=== PATIENT | female | born 1960 | race Caucasian/White ===

== ENCOUNTER 2024-01-07 16:27 | Emergency (ER) | payer MEDICARE, OTHER, SELFPAY ==
[2024-01-07 16:27] VITALS: BMI 24.6
[2024-01-07 16:36] VITALS: BP 137/80
[2024-01-07 17:03] LABS: % Basophils 0.7 % (0-2); % Eosinophils 0.8 % (0-6); % Immature Granulocytes 0.2 % (0-0.5); % Lymphocytes 15.5 % (20.5-51.1); % Monocytes 6.3 % (1.7-9.3); % Neutrophils 76.5 % (42.2-75.2); Absolute Basophils 0.1 10^3/uL (0-0.2); Absolute Eosinophils 0.1 10^3/uL (0-0.7); Absolute Monocytes 0.8 10^3/uL (0.1-0.6); Hematocrit 31.4 % (37.0-47.0); Hemoglobin 9.6 g/dL (12.0-16.0); Mean Corp Hgb Conc. 30.6 g/dL (33.0-37.0); Mean Corpuscular Hgb 24.2 pg (27.0-31.0); Mean Corpuscular Volume 79.3 fL (81.0-99.0); Mean Platelet Volume 10.2 fL (7.4-10.4); Nucleated Red Blood Cells % 0 %; Platelet Count 274 10^3/uL (130-400); Red Blood Cell Count 3.96 10^6/uL (4.20-5.40); Red Cell Dist. Width 16.7 % (11.5-14.5)
[2024-01-07 17:22] LABS: ALT (SGPT) 12 U/L (0-35); AST (SGOT) 25 U/L (14-36); Alkaline Phosphatase 76 U/L (38-126); Blood Urea Nitrogen 18 mg/dl (7-17); Calcium 9.4 mg/dl (8.4-10.2); Carbon Dioxide 24 mmol/L (22-30); Chloride 109 mmol/L (98-107); Glucose 92 mg/dl (70-99); Potassium 4.1 mmol/L (3.5-5.1); Sodium 136 mmol/L (135-145); Total Bilirubin 0.4 mg/dl (0.2-1.3); Total Protein 6.3 g/dl (6.3-8.2); eGFR > 60.00
[2024-01-07 17:23] LABS: Lipase 29 U/L (23-300)
[2024-01-07 19:00] VITALS: BP 118/78
--- NOTE | 2024-01-07 19:06 | ED.GENMED ---
History of Present Illness
General
Chief Complaint: Abdominal Pain
Source: patient
Exam Limitations: none
Time Seen by Provider: 01/07/24 18:41
Travel History
Have you had any contact with someone who has COVID-19?: No
Do you have any symptoms of coronavirus? Fever > 100 degrees, chills, cough, shortness of breath, sore throat, loss of taste or smell, muscle aches, or headache?: No
History of Present Illness
History of Present Illness:
This is a 63 year old female that comes in with c/o abd pain. States that she started 3 weeks ago with pain and she thought it was a virus. States that there was no nausea of vomiting it was just the pain. States that she had a couple different
times throughout the 3 weeks with this pain. Then last night she started with pain and it was a 15/10. States that it goes across the abd and into her back. States that she did have diarrhea a couple days ago but this stopped. Denies any fever,
chills, chest pain, SOB, nausea, vomiting, headache, dizziness, urinary burning.
Past History
Past History
ED Past Medical History: HTN and Psychiatric (Anxiety)
ED Past Surgical History: Cholecystectomy, Orthopedic (Right leg surgery), Tonsilectomy and Other (Gastric bypass)
Social History
Tobacco: Smoker
Alcohol: None
Personal: Single
Living: alone
Review of Systems
Review of Systems
All Other Systems: ROS reviewed and negative except as documented in HPI and ROS
Constitutional: Reports no symptoms; Denies fever or chills
EENT: Reports no symptoms
Respiratory: Reports no symptoms; Denies cough or trouble breathing
Cardiac: Denies chest pain
ABD/GI: Reports abdominal pain and diarrhea; Denies nausea or vomiting
: Reports no symptoms; Denies dysuria, frequency or urgency
Musculoskeletal: Reports no symptoms
Skin: Reports no symptoms
Neurological: Reports no symptoms; Denies dizzy or headache
Psychiatric: Reports no symptoms
Phy Exam
General Physical Exam
General Presentation: well appearing and no apparent distress
General age: appears stated age
General Skin: warm and dry
General Habitus: elderly
General Mental: alert
General Hydration: appears well hydrated
ENT Exam
ENT Exam: TM's normal, pharynx normal and neck supple
Eye Exam
Eye Exam: EOMI
Cardiovascular Exam
Cardiovascular Exam: regular rate/rhythm, no edema, normal peripheral pulses and other (Murmur)
Pulmonary Exam
Pulmonary Exam: lungs clear, no respiratory distress, no rales, chest non tender, no crackles, no rhonchi, no wheezing and no cough
Gastrointestinal Exam
Gastrointestinal Exam: normal bowel sounds, soft, no organomegaly, no pulsatile mass, non distended and tender (Left sided abd tenderness with palpation)
Musculoskeletal Exam
Musculoskeletal Exam: full ROM and no edema
Skin Exam
Skin Exam: normal color, warm/dry, no rash and no petechia
Psychiatric Exam
Psychiatric Exam: normal mood/affect
Course
Orders/Labs/Results
Orders:
Orders
01/07/24 16:53
Complete Blood Count/With Diff Urgent
Comprehensive Metabolic Panel Urgent
Lipase Urgent
01/07/24 19:05
CT Abd/pel W Iv And Oral Contr Urgent
Comment:
Reason For Exam: lEFT SIDED ABD PAIN
0.9% Sodium Chloride 500 ml [Nss] 500 ml IV BOLUS
Iohexol [Omnipaque] See Protocol PO NOW STA
Ketorolac [Toradol] 30 mg IV NOW STA
01/07/24 20:03
Ondansetron Injectable [Zofran] 4 mg .ROUTE .STK-MED ONE
01/07/24 20:36
Urinalysis Reflex To Culture Urgent
Date Specimen was Collected: 01/07/24
Time Specimen was Collected: 20:23
Urine Microscopic Reflex Cult Urgent
Abnormal Lab Results
01/07/24 01/07/24
16:53 20:36
WBC 13.0 H 10^3/uL
(4.8-10.8)
RBC 3.96 L 10^6/uL
(4.20-5.40)
Hgb 9.6 L g/dL
(12.0-16.0)
Hct 31.4 L %
(37.0-47.0)
MCV 79.3 L fL
(81.0-99.0)
MCH 24.2 L pg
(27.0-31.0)
MCHC 30.6 L g/dL
(33.0-37.0)
RDW 16.7 H %
(11.5-14.5)
Absolute Neuts (auto) 10.0 H 10^3/uL
(1.4-6.5)
Absolute Monos (auto) 0.8 H 10^3/uL
(0.1-0.6)
Neutrophils % 76.5 H %
(42.2-75.2)
Lymphocytes % 15.5 L %
(20.5-51.1)
Chloride 109 H mmol/L
(98-107)
BUN 18 H mg/dl
(7-17)
Urine Ketones Trace A
(Negative)
Urine Bilirubin 1+ A
(Negative)
Leukocyte Esterase Rfl Trace A
(Negative)
Urine Bacteria (Reflex) Few A
(Negative)
01/07/24 16:53
01/07/24 16:53
Leukocytosis, H/H low. Anemic, Chloride slightly elevated. Lipase normal at 29, Urine negative or infection.
Vital Signs
Initial and Last Documented VS:
Initial Vital Signs
Temp Pulse Resp BP Pulse Ox
99 F 93 18 137/80 96
01/07/24 16:36 01/07/24 16:36 01/07/24 16:36 01/07/24 16:36 01/07/24 16:36
Last Documented Vital Signs
Temp Pulse Resp BP Pulse Ox
99 F 85 13 118/78 97
01/07/24 16:36 01/07/24 21:15 01/07/24 21:15 01/07/24 19:00 01/07/24 20:45
MDM/Problems Addressed
Differential Diagnosis Includes:
Diverticulitis, Colitis
MDM/Problems Addressed:
This is a 63 year old female that comes in with c/o abd pain. States that this started about 3 weeks ago and she thought it was just a GI virus. Then it went away and it did come back several times during the 3 weeks. Last night her pain was so bad
that it was a 15/10.
Will get labs, CT abd/pelvis. Will also give IV fluids and medicate for pain.
Back into see patient. Explained that her WBC are slightly elevated and she is a little anemia. Urine is negative for infection. CT of the abd is negative for any acute process. There is moderate amount of stool in the colon. Notified patient of the
Left lower lobe Nodule but patient was already aware and had a CT of the chest done. States that she is seeing the doctor this week for report. Explained that there is also a small lesion on the left kidney that is to small to be characterized.
Encouraged patient to increase her water intake daily, Try Miralax to help with the stool burden. Return with any concerns.
Chronic conditions affecting care: Previous abdomnial surgery
Acute Exacerbation and/or Progression of Chronic Illness:
NA
*Radiology
Radiology exam reviewed: radiology read reviewed (CT -Moderate hepatomegaly. MIld intrahepatic biliary dilatioin. This can be seen postcholecystectomy. Right staghorn calculus. Too Small to characterize hypodense left renal lesion likely a benign
cyst. Incompletely imaged left lower lobe possible pulmonary nodule. Nonurgent dedicated CT of the ) and all reviewed NAD by ED Provider (CT cont- chest recommended. Mild free fluid in the pelvis. Uncommon in postmenopausal female. Nonspecific.
Moderate fecal material throughout the colon. )
*Pulse Oximetry
Patient hypoxic: no
*EKG
Interpreted by ED Provider?: NA
Rate: EKG- N/A
*Low Heel Builder Interpretation
Rate: normal
Heart Rate: 90
Rhythm: sinus
*Critical Care Note
Total Time (30-74mins, 75-104mins- exclusive of procedures): Not Applicable
ED Attending Note
-
Portions of this chart may have been created with voice recognition software.� Occasional wrong word or��sound alike� substitutions may have occurred due to the inherent limitations of voice recognition software.
Discharge Plan
Departure
Patient Disposition: Home (Routine Discharge)
Date of Disposition: 01/07/24
Time of Disposition: 22:33
Patient with high blood pressure during this ER visit?: No
Condition: Good
Covid-19: Not Applicable
Discharge Problem:
Abdominal pain
Instructions: Abdominal Pain
Referrals:
Robert Mishra DO [Family Provider] - Call in 1-3 days for appt
Activity Restrictions/Additional Instructions:
As discussed, your blood work shows your White blood cell count is slightly elevated. Your urine is negative for infection and your CT shows a moderate amount of stool burden. Please increase your water intake to 8-8oz glasses daily. Follow up with
the family doctor for your report of your chest CT. You may try Miralax to help with the stool burden. IF YOU HAVE INCREASED OR CHANGING PAIN, OR YOU HAVE ANY OTHER CONCERNS PLEASE RETURN TO THE EMERGENCY ROOM.
Interventions
Interventions:
*Risk Screen - Suicide Last Done: 01/07/24 16:36
*General Assessment Last Done: 01/07/24 16:36
*Neglect/Abuse Screening Last Done: 01/07/24 16:36
ED- Fall Risk Assessment Last Done: 01/07/24 19:28
OH-Yqsoul-Miejnvwewj Assessment Last Done: 01/07/24 19:28
Discharge Date and Time
Print Language: COLOMBIAN
[2024-01-07] MEDS: OMNIPAQUE 50 ML PO (19:10)
[2024-01-07] MEDS: TORADOL 30 MG IV (19:10)
[2024-01-07] MEDS: NSS 500 IV (19:13)
[2024-01-07 20:43] LABS: Urine Albumin Trace (Neg - Trace); Urine Bilirubin 1+ (Negative); Urine Character Clear (Clear); Urine Color Yellow; Urine Glucose Negative (Negative); Urine Ketone Trace (Negative); Urine Leukocyte Trace (Negative); Urine Nitrite Negative (Negative); Urine Occult Blood Negative (Negative); Urine Urobilinogen 1+ (Neg - 1+)
[2024-01-07 20:55] LABS: Urine Bacteria Few (Negative); Urine Red Blood Cell 0-2 /HPF (0-2)
== END 2024-01-07 22:46 | disposition home or self-care (01) ==
LOC: EMR 16:27
PROVIDERS: Clinical Nurse Specialist Family Health; EMERGENCY PHYSICIAN Emergency Medicine; FAMILY PHYSICIAN Family Medicine
DX: R10.9 Unspecified abdominal pain (principal); I10 Essential (primary) hypertension; F17.200 Nicotine dependence, unspecified, uncomplicated
CPT/HCPCS: 99285; 96374; 96361; 74177; 80053; 81003; 81015; 83690; 85025; Q9967